=== PATIENT | male | born 2000 | race Caucasian/White ===

== ENCOUNTER 2021-03-03 13:53 | Emergency (ER) | payer OTHER ==
[~2021-03-03] VITALS: Ht 190.5 cm; Wt 74.0 kg
[2021-03-03] MEDS ORDERED: NORCO, ANEXSIA 5/325MG TABLET (HYDROcodone/ACETAMINOPHEN) PO ONE (16:40)
--- NOTE | 2021-03-03 16:58 | REP ---
INDICATION: rock fell on foot. COMPARISON: None. TECHNIQUE: Four views FINDINGS: There is a mm sized flake like ossific density just distal to the medial malleolus. The examination is otherwise unremarkable. IMPRESSION: Possible minimal medial malleolar avulsion fracture. Correlate clinically for point tenderness about this region. <Electronically signed by Baudilio Ba > 03/03/21 [id number]
--- NOTE | 2021-03-03 16:59 | REP ---
INDICATION: rock fell on foot. COMPARISON: None. FINDINGS: The joint spaces are symmetric and relatively well maintained. There is no evidence of acute fracture or destructive osseous lesion. IMPRESSION: Negative. <Electronically signed by Baudilio Ba > 03/03/21 [id number]
[2021-03-03] MEDS ORDERED: IBUP80TA PO (17:37)
[2021-03-03 17:45] VITALS: BP 129/72
== END 2021-03-03 17:47 | disposition home or self-care (01) ==
LOC: M ED 13:53
DX: S82.52XA Displaced fracture of medial malleolus of left tibia, initial encounter for closed fracture (principal); X50.9XXA Other and unspecified overexertion or strenuous movements or postures, initial encounter; Y92.89 Other specified places as the place of occurrence of the external cause; Y93.01 Activity, walking, marching and hiking

== ENCOUNTER 2021-10-20 02:34 | Emergency (ER) | payer OTHER ==
[~2021-10-20] VITALS: Ht 190.5 cm; Wt 79.5 kg
[~2021-10-20 02:34] MED LIST: IBUP80TA PO
[2021-10-20] MEDS ORDERED: COMBIVENT RESPIMAT 100-20MCG INHALER 4GM INH ONE (05:15)
[2021-10-20 05:32] LABS: BASO # 0.1 10^3/uL (0.0-0.2); BASO % 0.6 % (0.0-1.0); EOS # 0.3 10^3/uL (0.0-0.5); EOS % 3.3 % (0.0-3.0); HEMATOCRIT 44.1 % (42.0-52.0); HEMOGLOBIN 15.3 g/dl (13.5-17.5); LYMPH # 2.4 10^3/uL (1.5-5.0); LYMPH % 23.7 % (24.0-44.0); MEAN CORPUSCULAR HEMOGLOBIN 31.2 pg (27.0-33.0); MEAN CORPUSCULAR HGB CONC 34.7 g/dl (32.0-36.5); MEAN CORPUSCULAR VOLUME 89.8 fl (80.0-96.0); MONO % 9.4 % (2.0-8.0); NEUTROPHILS # 6.4 10^3/uL (1.5-8.5); NEUTROPHILS % 62.6 % (36.0-66.0); PLATELET COUNT, AUTOMATED 239 10^3/uL (150-450); RED BLOOD COUNT 4.91 10^6/uL (4.30-6.10); WHITE BLOOD COUNT 10.2 10^3/uL (4.0-10.0)
[2021-10-20 05:53] LABS: ALBUMIN 3.9 GM/DL (3.2-5.2); ALT/SGPT 29 U/L (12-78); BILIRUBIN,TOTAL 0.6 MG/DL (0.2-1.0); BLOOD UREA NITROGEN 9 MG/DL (7-18); CARBON DIOXIDE LEVEL 26 MEQ/L (21-32); CHLORIDE LEVEL 108 MEQ/L (98-107); CREATININE FOR GFR 1.09 MG/DL (0.70-1.30); GLUCOSE, FASTING 97 MG/DL (70-100); POTASSIUM SERUM 4.3 MEQ/L (3.5-5.1); SODIUM LEVEL 140 MEQ/L (136-145); TOTAL PROTEIN 6.9 GM/DL (6.4-8.2)
[2021-10-20] MEDS ORDERED: BENZ200C70 PO (06:38)
[2021-10-20 06:44] VITALS: BP 117/71
== END 2021-10-20 06:45 | disposition home or self-care (01) ==
LOC: M ED 02:34
DX: J06.9 Acute upper respiratory infection, unspecified (principal); B97.89 Other viral agents as the cause of diseases classified elsewhere

== ENCOUNTER 2022-03-28 23:02 | Emergency (ER) | payer OTHER ==
[~2022-03-28] VITALS: Ht 188 cm; Wt 77.3 kg
[~2022-03-28 23:02] MED LIST changes: +BENZ200C70 PO
[2022-03-28 23:03] VITALS: BP 130/87
== END 2022-03-29 01:02 | disposition left against medical advice (07) ==
LOC: M ED 23:02
DX: Z53.21 Procedure and treatment not carried out due to patient leaving prior to being seen by health care provider (principal)